=== PATIENT | female | born 1950 | race Caucasian/White ===

== ENCOUNTER 2016-04-13 07:56 | Day surgery (SDC) | payer MEDICARE, OTHER ==
[~2016-04-13 07:56] MED LIST: ACET500CAP PO; APRES10B PO; ASA5GR PO; ASAB PO; ASABAYER PO; ASPIRIN 81 MG PO; ATV.5 PO; ATV1 PO; BEN25 PO; BENICAR20 PO; BIST PO; C1 PO; CELEXA20 PO; COREG6 PO; COUMADIN10 MG PO; COUMADIN3 MG PO; CRESTOR10 PO; CRESTOR20 MG PO; DEMA100 PO; DSS PO; FLUCON2 PO; HUMALOG SC; HUMULIN R1 ML SC; INSNOVR SC; INSULIN LANTUS SC; ISORDIL10 PO; ISOSORBIDE PO; Imdur PO; JUVEN POWDER PO; KLOR-CON M1010 MEQ PO; L20 PO; LANTUS; LANTUS SC; LEVAQUIN5T PO; LORTAB 5 PO; LOTENSIN HCT1 TA2 PO; MIRALAXPKT PO; MONOKET PO; NEO-OINT TOP; NEPHRO PO; NEPHRO-VITE PO; NEUR300 PO; NEUR400 PO; NITROQUICK0.4 MG SL; NITROSTAT0.4 MG SL; NORCO1 TA1 PO; NORV5 PO; NOVOLOG SC; PHOSLO PO; PLAVIX PO; PR12.5R PR; PRIN5 PO; PROBIOTIC PO; PROTONIX PO; PROVHFA INH; QVAR 80 MCG80 MCG PO; QVAR80 MCG IN; REG5 PO; RENA-VITE PO; RENAL CAP PO; RENAL SFTGLS1 MG PO; TUMSROLL PO; VICODINTAB PO; VYTORIN 10/10 T1 TAB PO; ZOFRAN ODT4 MG PO; ZOFRAN4 PO; ZOFRANODT8; [UNRECOGNIZED DRUG - OTHER]; [UNRECOGNIZED DRUG - OTHER] PO; [UNRECOGNIZED DRUG - OTHER] PO; [UNRECOGNIZED DRUG - REMARK]
== END 2016-04-13 23:59 | disposition home or self-care (01) ==
LOC: SDC 07:56
PROVIDERS: Ophthalmology
PROC: 085K3ZZ Destruction of Left Lens, Percutaneous Approach (ICD-10-PCS; principal; 2016-04-13 12:00)
DX: H26.40 Unspecified secondary cataract (principal); E11.9 Type 2 diabetes mellitus without complications; F32.9 Major depressive disorder, single episode, unspecified; D64.9 Anemia, unspecified; Z98.890 Other specified postprocedural states; E11.40 Type 2 diabetes mellitus with diabetic neuropathy, unspecified; I25.10 Atherosclerotic heart disease of native coronary artery without angina pectoris; I25.2 Old myocardial infarction; E78.00 Pure hypercholesterolemia, unspecified; I50.9 Heart failure, unspecified; I11.0 Hypertensive heart disease with heart failure; J45.909 Unspecified asthma, uncomplicated; Z90.49 Acquired absence of other specified parts of digestive tract; Z88.0 Allergy status to penicillin; Z88.8 Allergy status to other drugs, medicaments and biological substances; Z87.442 Personal history of urinary calculi; Z88.2 Allergy status to sulfonamides
CPT/HCPCS: A9270-GY